=== PATIENT | male | born 1990 | race Hispanic/Latino ===

== ENCOUNTER 2019-01-20 04:44 | Emergency (ER) | payer SELFPAY ==
[2019-01-20] MEDS ORDERED: FLUORESCEIN SODIUM 1 MG/WRAP ONE (05:44)
--- NOTE | 2019-01-20 05:50 | EDPHYS ---
Physician Documentation [facility] Name: Steve Epps Age: 28 yrs Sex: Male : 1990 Arrival Date: 01/20/2019 Time: 04:46 Bed 7 Private MD: ED Physician Seth Salguero HPI: 01/20 05:43 This 28 yrs old Male presents to ER via Ambulatory with complaints of Eye ramos Pain, Eye Problem. 05:43 The patient is experiencing burning, matting or discharge, pain, to both eyes. Onset: ramos The symptoms/episode began/occurred 30 day(s) ago. Duration: the symptoms are continuous. Aggravated by blinking, closing eye, opening eye. Associated signs and symptoms: Pertinent positives: None. Pertinent negatives: None. Patient does not utilize any form of vision correction. Severity of symptoms: At their worst the symptoms were. Historical: - Allergies: 05:00 No Known Allergies; jd3 - Home Meds: 05:00 None [Active]; jd3 - PMHx: 05:00 Asthma; Arthritis; Kidney stones; jd3 - PSHx: 05:00 None; jd3 - Immunization history:: Adult Immunizations up to date. - Social history:: Smoking status: Patient/guardian denies using tobacco. - Ebola Screening: : Patient negative for fever greater than or equal to 101.5 degrees Fahrenheit, and additional compatible Ebola Virus Disease symptoms. - Family history:: not pertinent. ROS: 05:43 Constitutional: Negative for fever, chills, and weight loss, ENT: Negative for injury, ramos pain, and discharge, Neck: Negative for injury, pain, and swelling, Cardiovascular: Negative for chest pain, palpitations, and edema, Respiratory: Negative for shortness of breath, cough, wheezing, and pleuritic chest pain, Abdomen/GI: Negative for abdominal pain, nausea, vomiting, diarrhea, and constipation, Back: Negative for injury and pain, : Negative for injury, bleeding, discharge, and swelling, MS/Extremity: Negative for injury and deformity, Skin: Negative for injury, rash, and discoloration, Neuro: Negative for headache, weakness, numbness, tingling, and seizure, Psych: Negative for depression, anxiety, suicide ideation, homicidal ideation, and hallucinations, Allergy/Immunology: Negative for hives, rash, and allergies, Endocrine: Negative for neck swelling, polydipsia, polyuria, polyphagia, and marked weight changes, Hematologic/Lymphatic: Negative for swollen nodes, abnormal bleeding, and unusual bruising. 05:43 Eyes: Positive for blurry vision, itching, matting, pain, redness, of the outer aspect of conjuctiva of right eye, iris of right eye, inner aspect of conjuctiva of right eye, outer aspect of conjuctiva of left eye, iris of left eye and inner aspect of conjunctiva of left eye. Exam: 05:43 Constitutional: This is a well developed, well nourished patient who is awake, alert, ramos and in no acute distress. Head/Face: Normocephalic, atraumatic. ENT: Nares patent. No nasal discharge, no septal abnormalities noted. Tympanic membranes are normal and external auditory canals are clear. Oropharynx with no redness, swelling, or masses, exudates, or evidence of obstruction, uvula midline. Mucous membranes moist. Neck: Trachea midline, no thyromegaly or masses palpated, and no cervical lymphadenopathy. Supple, full range of motion without nuchal rigidity, or vertebral point tenderness. No Meningismus. Chest/axilla: Normal chest wall appearance and motion. Nontender with no deformity. No lesions are appreciated. Cardiovascular: Regular rate and rhythm with a normal S1 and S2. No gallops, murmurs, or rubs. Normal PMI, no JVD. No pulse deficits. Respiratory: Lungs have equal breath sounds bilaterally, clear to auscultation and percussion. No rales, rhonchi or wheezes noted. No increased work of breathing, no retractions or nasal flaring. Abdomen/GI: Soft, non-tender, with normal bowel sounds. No distension or tympany. No guarding or rebound. No evidence of tenderness throughout. Back: No spinal tenderness. No costovertebral tenderness. Full range of motion. Male : Normal genitalia with no discharge or lesions. Skin: Warm, dry with normal turgor. Normal color with no rashes, no lesions, and no evidence of cellulitis. MS/ Extremity: Pulses equal, no cyanosis. Neurovascular intact. Full, normal range of motion. Neuro: Awake and alert, GCS 15, oriented to person, place, time, and situation. Cranial nerves II-XII grossly intact. Motor strength 5/5 in all extremities. Sensory grossly intact. Cerebellar exam normal. Normal gait. Psych: Awake, alert, with orientation to person, place and time. Behavior, mood, and affect are within normal limits. 05:43 Eyes: Pupils: no acute changes, equal, round, and reactive to light and accomodation, Extraocular movements: intact throughout, Conjunctiva: Corneas: are normal. Vital Signs: 05:00 BP 140 / 90; Pulse 72; Resp 16 S; Temp 97.6(TE); Pulse Ox 98% on R/A; Weight 90.72 kg jd3 (R); Height 5 ft. 7 in. (170.18 cm) (R); Pain 4/10; 06:41 BP 126 / 81; Pulse 71; Resp 18 S; Pulse Ox 100% on R/A; jd3 05:00 Body Mass Index 31.32 (90.72 kg, 170.18 cm) jd3 Visual Acuity: 05:01 Left Eye Visual acuity 20/20, Pupil size 3 mm, Normal, React To Light, Reactive To jd3 Accomodation; Right Eye Visual acuity 20/25, Pupil size 3 mm, Normal, React To Light, Reactive To Accomodation; Both Eyes Visual acuity 20/20; Without Lenses; MDM: 05:[address] medically [address] [facility] 05:46 Data reviewed: vital signs, nurses notes. [facility] 01/20 05:53 Order name: Glucose, Ancillary Testing [facility] 01/20 05:48 Order name: Visual Acuity; Complete Time: 05:[address] [facility] 01/20 05:48 Order name: Eye Tray; Complete Time: 05:[address] [facility] 01/20 05:48 Order name: Fluoresene Opth strip; Complete Time: 05:[address] [facility] 01/20 05:49 Order name: Accucheck; Complete Time: 05:49 lp1 Administered Medications: 06:25 Drug: Tetracaine Drops 0.5 % 1 drops {Note: given by Dr. Salguero.} Route: Ophthalmic; jd3 Site: both eyes; 06:45 Follow up: Response: Medication administered at discharge. j 06:36 Drug: Tobrex 0.3 % 1 application Route: Ophthalmic; Site: both eyes; jd3 06:43 Follow up: Response: Medication administered at discharge. j Disposition: 01/20/19 05:50 Discharged to Home. Impression: Conjunctivitis, Ocular pain, left eye, Ocular pain, right eye. - Condition is Stable. - Discharge Instructions: Bacterial Conjunctivitis. - Prescriptions for Tobrex 0.3 % Ophthalmic ointment - apply 1 inch ribbon by OPHTHALMIC route 3 times per day; 3.5 gram. Tylenol- Codeine #3 300-30 mg Oral Tablet - take 2 tablet by ORAL route every 6 hours As needed; 30 tablet. Claritin 10 mg Oral Tablet - take 1 tablet by ORAL route once daily As needed; 30 tablet. - Medication Reconciliation Form, Thank You Letter, Antibiotic Education, Prescription Opioid Use form. - Follow up: Private Physician; When: 1 - 2 days; Reason: Recheck today's complaints, Re-evaluation by your physician. Follow up: Italo Stover MD; When: 2 - 3 days; Reason: Recheck today's complaints, Re-evaluation by your physician. - Problem is new. - Symptoms have improved. Signatures: Dispatcher [employer] EDMS Seth Salguero MD MD cha Pena, Laura RN RN lp1 Merlin Rashid RN RN jd3 Corrections: (The following items were deleted from the chart) 05:52 05:50 01/20/2019 05:50 Discharged to Home. Impression: Conjunctivitis. Condition is ramos Stable. Forms are Medication Reconciliation Form, Thank You Letter, Antibiotic Education, Prescription Opioid Use. Follow up: Private Physician; When: 1 - 2 days; Reason: Recheck today's complaints, Re-evaluation by your physician. Follow up: Italo Stover; When: 2 - 3 days; Reason: Recheck today's complaints, Re-evaluation by your physician. Problem is new. Symptoms have improved. [facility] 06:45 05:52 01/20/2019 05:50 Discharged to Home. Impression: Conjunctivitis; Ocular pain, jd3 left eye; Ocular pain, right eye. Condition is Stable. Discharge Instructions: Bacterial Conjunctivitis. Prescriptions for Tobrex 0.3 % Ophthalmic ointment - apply 1 inch ribbon by OPHTHALMIC route 3 times per day; 3.5 gram, Tylenol-Codeine #3 300-30 mg Oral Tablet - take 2 tablet by ORAL route every 6 hours As needed; 30 tablet, Claritin 10 mg Oral Tablet - take 1 tablet by ORAL route once daily As needed; 30 tablet. and Forms are Medication Reconciliation Form, Thank You Letter, Antibiotic Education, Prescription Opioid Use. Follow up: Private Physician; When: 1 - 2 days; Reason: Recheck today's complaints, Re-evaluation by your physician. Follow up: Italo Stover; When: 2 - 3 days; Reason: Recheck today's complaints, Re-evaluation by your physician. Problem is new. Symptoms have improved. ramos
--- NOTE | 2019-01-20 05:50 | ER ---
Nurse's Notes [facility] Name: Steve Epps Age: 28 yrs Sex: Male : 1990 Arrival Date: 01/20/2019 Time: 04:46 Bed 7 Private MD: Diagnosis: Conjunctivitis;Ocular pain, left eye;Ocular pain, right eye Presentation: 01/20 04:57 Presenting complaint: Patient states: "since about I have been having jd3 irritating bloodshot eyes. and here recently when I wake up I have been having that sleep goo in my eyes to point I can't open them without removing that stuff first.". Transition of care: patient was not received from another setting of care. Mechanism of Injury: No Mechanism of Injury. The patient denies any loss of vision. Onset of symptoms was January 11, 2019. Risk Assessment: Do you want to hurt yourself or someone else? Patient reports no desire to harm self or others. Initial Sepsis Screen: Does the patient meet any 2 criteria? No. Patient's initial sepsis screen is negative. Does the patient have a suspected source of infection? No. Patient's initial sepsis screen is negative. Care prior to arrival: None. 04:57 Method Of Arrival: Ambulatory jd3 04:57 Acuity: ANA MARIA 5 jd3 Historical: - Allergies: 05:00 No Known Allergies; jd3 - Home Meds: 05:00 None [Active]; jd3 - PMHx: 05:00 Asthma; Arthritis; Kidney stones; jd3 - PSHx: 05:00 None; jd3 - Immunization history:: Adult Immunizations up to date. - Social history:: Smoking status: Patient/guardian denies using tobacco. - Ebola Screening: : Patient negative for fever greater than or equal to 101.5 degrees Fahrenheit, and additional compatible Ebola Virus Disease symptoms. - Family history:: not pertinent. Screenin:03 Abuse screen: Denies threats or abuse. Nutritional screening: No deficits noted. jd3 Tuberculosis screening: No symptoms or risk factors identified. Fall Risk Ambulatory Aid- None/Bed Rest/Nurse Assist (0 pts). Gait- Normal/Bed Rest/Wheelchair (0 pts) Mental Status- Oriented to own ability (0 pts). Total Ross Fall Scale indicates No Risk (0-24 pts). Assessment: 05:02 General: Appears in no apparent distress. uncomfortable, Behavior is calm, cooperative, jd3 appropriate for age. Pain: Complains of pain in right eye and left eye Quality of pain is described as pressure. Neuro: Level of Consciousness is awake, alert, obeys commands, Oriented to person, place, time, situation. Cardiovascular: Capillary refill < 3 seconds Patient's skin is warm and dry. Respiratory: Airway is patent Respiratory effort is even, unlabored, Respiratory pattern is regular, symmetrical. GI: No signs and/or symptoms were reported involving the gastrointestinal system. : No signs and/or symptoms were reported regarding the genitourinary system. EENT: Eyes no foreign object noted. Sclera/Cornea are reddened in right eye and left eye. Derm: Skin is intact, Skin is dry, Skin is normal, Skin temperature is warm. Musculoskeletal: Circulation, motion, and sensation intact. Range of motion: intact in all extremities. 06:41 Reassessment: Patient appears in no apparent distress at this time. Patient and/or jd3 family updated on plan of care and expected duration. Pain level reassessed. Patient is alert, oriented x 3, equal unlabored respirations, skin warm/dry/pink. Patient states feeling better. Vital Signs: 05:00 BP 140 / 90; Pulse 72; Resp 16 S; Temp 97.6(TE); Pulse Ox 98% on R/A; Weight 90.72 kg jd3 (R); Height 5 ft. 7 in. (170.18 cm) (R); Pain 4/10; 06:41 BP 126 / 81; Pulse 71; Resp 18 S; Pulse Ox 100% on R/A; jd3 05:00 Body Mass Index 31.32 (90.72 kg, 170.18 cm) jd3 Visual Acuity: 05:01 Left Eye Visual acuity 20/20, Pupil size 3 mm, Normal, React To Light, Reactive To jd3 Accomodation; Right Eye Visual acuity 20/25, Pupil size 3 mm, Normal, React To Light, Reactive To Accomodation; Both Eyes Visual acuity 20/20; Without Lenses; ED Course: 04:46 Patient arrived in ED. cl3 04:57 Merlin Rashid RN is Primary Nurse. jd3 04:59 Triage completed. jd3 05:01 Arm band placed on. jd3 05:03 Patient has correct armband on for positive identification. Bed in low position. Call jd3 light in reach. Side rails up X 1. Adult w/ patient. 05:20 Seth Salguero MD is Attending Physician. ramos 05:48 Italo Stover MD is Referral Physician. [facility] 06:41 No provider procedures requiring assistance completed. Patient did not have IV access jd3 during this emergency room visit. Administered Medications: 06:25 Drug: Tetracaine Drops 0.5 % 1 drops {Note: given by Dr. Salguero.} Route: Ophthalmic; jd3 Site: both eyes; 06:45 Follow up: Response: Medication administered at discharge. jd3 06:36 Drug: Tobrex 0.3 % 1 application Route: Ophthalmic; Site: both eyes; jd3 06:43 Follow up: Response: Medication administered at discharge. jd3 Outcome: 05:50 Discharge ordered by . ramos 06:41 Discharged to home ambulatory, with family. jd3 06:41 Condition: stable 06:41 Discharge instructions given to patient, family, Instructed on discharge instructions, follow up and referral plans. medication usage, Demonstrated understanding of instructions, follow-up care, medications, Prescriptions given X 3. 06:45 Patient left the ED. jd3 Signatures: Seth Salguero MD MD cha Davies, Jonathon, RN RN Fei Oneil cl3
[2019-01-20] MEDS ORDERED: TOBRAMYCIN SULF 0.3% OPTH OINT ONE (05:54)
[2019-01-20] MEDS ORDERED: TETRACAINE HCL 0.5% 4ML OPTH ONE (06:25)
[2019-01-20 06:57] VITALS: TEMP 97.6
[2019-01-20 06:58] VITALS: BP 126/81; O2SAT 100
== END 2019-01-20 06:45 | disposition home or self-care (01) ==
LOC: ER 04:44
DX: H10.9 Unspecified conjunctivitis (principal); H57.13 Ocular pain, bilateral
CPT/HCPCS: 82947; 99283